=== PATIENT | female | born 1960 | race Caucasian/White ===

== ENCOUNTER 2021-11-08 22:47 | Inpatient (IN) | payer SELFPAY ==
[2021-11-09] MEDS ORDERED: Ondansetron PF 4 MG/2 ML Vial ONE (00:21)
[2021-11-09 00:29] LABS: Hemoglobin 12.4 g/dL (12.0-16.0); Mean Corpuscular HGB CONC 32.5 g/dL (32.0-36.0); Mean Corpuscular Hemoglobin 29.9 pg (27.0-31.0); Mean Corpuscular Volume 92.1 fL (78.0-98.0); Mean Platelet Volume 8.6 fL (7.4-10.4); Platelet Count 145 thou/uL (130-400); RBC Distribution Width 14.9 % (11.5-14.5); Red Blood Cell (RBC) Count 4.15 mill/uL (4.20-5.40); White Blood Cell (WBC) Count 23.3 thou/uL (4.8-10.8)
[2021-11-09 00:47] LABS: Band 54 % (5-11); Lymphocytes 2 % (21-51); MDiff Complete? YES; Metamyelocyte 1 % (0-0); Monocytes 4 % (0-10); Neutrophil 39 % (42-75); Platelet Morphology Comment Appears Adequate; RBC Morphology Normal; Reflex for Review?? YES
[2021-11-09 00:49] LABS: ALT (SGPT) 14 U/L (8-55); AST (SGOT) 24 U/L (5-34); Alkaline Phosphatase 76 U/L (40-110); Anion Gap 14 mmol/L (10-20); BUN (Urea Nitrogen) 43 mg/dL (9.8-20.1); Bilirubin, Total 0.5 mg/dL (0.2-1.2); Calc. Creatinine Clearance 0 mL/min (70-130); Calcium 9.1 mg/dL (7.8-10.44); Carbon Dioxide 22 mmol/L (23-31); Chloride 95 mmol/L (98-107); Globulin 4.9 g/dL (2.4-3.5); Glucose 100 mg/dL (80-115); Lipase 8 U/L (8-78); Potassium 5.8 mmol/L (3.5-5.1); Protein, Total 7.9 g/dL (5.8-8.1); Sodium 125 mmol/L (136-145)
[2021-11-09] MEDS ORDERED: Vancomycin 1 GM/200 ML BAG ONE (00:54)
[2021-11-09] MEDS ORDERED: Cefepime 2 GM VIAL ONE (00:54)
[2021-11-09 03:14] LABS: Bacteria/HPF None Seen HPF (None Seen); Bilirubin Negative (Negative); Blood, Urine 2+ (Negative); Clarity Turbid (Clear); Glucose, Urine (Dipstick) Normal (Negative); Ketone, Urine Negative (Negative); Leukocyte 500 Leu/uL (Negative); Nitrite Negative (Negative); Protein, Urine (Dipstick) 70 mg/dL (Neg-Trace); Specific Gravity, Urine 1.022 (1.002-1.036); Urobilinogen Normal mg/dL (Less than 2); WBC/HPF Greater than 50 HPF (0-3); pH, Urine 5.5 (5.0-9.0)
[2021-11-09 03:18] LABS: Lactic Acid 2.1 mmol/L (0.5-2.2)
[2021-11-09] MEDS ORDERED: Acetaminophen 325 MG TAB PO PRN (08:23)
[2021-11-09] MEDS ORDERED: Ondansetron ODT 4 MG TAB PO PRN (08:23)
[2021-11-09] MEDS ORDERED: Ondansetron PF 4 MG/2 ML Vial IVP PRN (08:23)
[2021-11-09] MEDS ORDERED: HYDROcodone/Acetaminophen 5/325 mg Tablet PO SCH (08:45)
[2021-11-09 10:09] LABS: Anion Gap 12 mmol/L (10-20); BUN (Urea Nitrogen) 36 mg/dL (9.8-20.1); Calc. Creatinine Clearance 0 mL/min (70-130); Calcium 8.3 mg/dL (7.8-10.44); Carbon Dioxide 21 mmol/L (23-31); Chloride 100 mmol/L (98-107); Glucose 87 mg/dL (80-115); Potassium 4.6 mmol/L (3.5-5.1); Sodium 128 mmol/L (136-145)
[2021-11-09] MEDS ORDERED: Enoxaparin Sodium 40 MG/0.4 ML SYRINGE ONE (10:10)
[2021-11-09] MEDS ORDERED: HYDROcodone/Acetaminophen 5/325 mg Tablet ONE (10:10)
[2021-11-09] MEDS: Sodium Chloride 0.9% 1,000 ML IV SCH ×2 (10:18→17:43)
[2021-11-09] MEDS: Cefepime 1 GM in Sodium Chloride 0.9% 100 ML IVPB SCH (13:39)
[2021-11-09] MEDS: HYDROcodone/Acetaminophen 7.5/325 mg Tablet PO PRN (19:23)
[2021-11-09] MEDS: Atorvastatin Calcium 20 MG TAB PO SCH (20:11)
[2021-11-09] MEDS: Sildenafil Citrate 20 MG TAB PO SCH (20:12)
[2021-11-10] MEDS: HYDROcodone/Acetaminophen 7.5/325 mg Tablet PO PRN ×3 (00:26→15:22)
[2021-11-10] MEDS: Cefepime 1 GM in Sodium Chloride 0.9% 100 ML IVPB SCH (00:27)
[2021-11-10] MEDS: Sodium Chloride 0.9% 1,000 ML IV SCH ×2 (00:28→16:03)
[2021-11-10 04:05] LABS: Anion Gap 8 mmol/L (10-20); BUN (Urea Nitrogen) 26 mg/dL (9.8-20.1); Calc. Creatinine Clearance 77 mL/min (70-130); Calcium 7.9 mg/dL (7.8-10.44); Carbon Dioxide 21 mmol/L (23-31); Chloride 106 mmol/L (98-107); Glucose 87 mg/dL (80-115); Potassium 4.4 mmol/L (3.5-5.1); Sodium 131 mmol/L (136-145)
[2021-11-10 04:40] LABS: #Lymphocytes 0.6 thou/uL (1.20-3.40); #Monocytes 0.3 thou/uL (0.11-0.59); #Neutrophils 8.3 thou/uL (1.40-6.50); %Basophils 0.5 % (0.0-1.0); %Eosinophils 0.2 % (0.0-10.0); %Lymphocytes 6.4 % (21.0-51.0); %Neutrophils 89.9 % (42.0-75.0); Hemoglobin 9.4 g/dL (12.0-16.0); Mean Corpuscular HGB CONC 32.5 g/dL (32.0-36.0); Mean Corpuscular Hemoglobin 30.1 pg (27.0-31.0); Mean Corpuscular Volume 92.7 fL (78.0-98.0); Mean Platelet Volume 8.9 fL (7.4-10.4); Platelet Count 99 thou/uL (130-400); Platelet Morphology Comment Appears Decreased; RBC Distribution Width 14.5 % (11.5-14.5); RBC Morphology Normal; Red Blood Cell (RBC) Count 3.11 mill/uL (4.20-5.40); White Blood Cell (WBC) Count 9.2 thou/uL (4.8-10.8)
[2021-11-10] MEDS ORDERED: Gabapentin 300 MG CAP PO PRN (07:36)
[2021-11-10] MEDS ORDERED: Cyclobenzaprine 10 MG TAB PO PRN (07:36)
[2021-11-10] MEDS: predniSONE 5 MG TAB PO SCH (10:13)
[2021-11-10] MEDS: Enoxaparin Sodium 40 MG/0.4 ML SYRINGE SC SCH (10:13)
[2021-11-10] MEDS: Sildenafil Citrate 20 MG TAB PO SCH ×3 (10:13→20:06)
[2021-11-10] MEDS: Hydroxychloroquine Sulfate 200 MG TAB PO SCH (10:13)
[2021-11-10] MEDS: Cefepime 2 GM in Sodium Chloride 0.9% 100 ML IVPB SCH (15:11)
[2021-11-10] MEDS: Atorvastatin Calcium 20 MG TAB PO SCH (20:06)
[2021-11-11] MEDS: Cefepime 2 GM in Sodium Chloride 0.9% 100 ML IVPB SCH (00:54)
[2021-11-11] MEDS: Sodium Chloride 0.9% 1,000 ML IV SCH ×2 (00:55→06:01)
[2021-11-11 06:23] LABS: #Eosinphils 0.1 thou/uL (0.0-0.7); #Lymphocytes 0.7 thou/uL (1.20-3.40); #Monocytes 0.6 thou/uL (0.11-0.59); #Neutrophils 7.7 thou/uL (1.40-6.50); %Basophils 0.5 % (0.0-1.0); %Eosinophils 0.6 % (0.0-10.0); %Monocytes 6.3 % (0.0-10.0); %Neutrophils 84.7 % (42.0-75.0); Hemoglobin 8.9 g/dL (12.0-16.0); Mean Corpuscular HGB CONC 32.9 g/dL (32.0-36.0); Mean Corpuscular Hemoglobin 30.4 pg (27.0-31.0); Mean Corpuscular Volume 92.4 fL (78.0-98.0); Mean Platelet Volume 8.8 fL (7.4-10.4); Platelet Count 89 thou/uL (130-400); RBC Distribution Width 14.3 % (11.5-14.5); Red Blood Cell (RBC) Count 2.92 mill/uL (4.20-5.40); White Blood Cell (WBC) Count 9.1 thou/uL (4.8-10.8)
[2021-11-11 06:42] LABS: Anion Gap 7 mmol/L (10-20); BUN (Urea Nitrogen) 18 mg/dL (9.8-20.1); Calc. Creatinine Clearance 90 mL/min (70-130); Calcium 7.6 mg/dL (7.8-10.44); Carbon Dioxide 20 mmol/L (23-31); Chloride 109 mmol/L (98-107); Glucose 87 mg/dL (80-115); Sodium 132 mmol/L (136-145)
[2021-11-11] MEDS: Enoxaparin Sodium 40 MG/0.4 ML SYRINGE SC SCH (07:58)
[2021-11-11] MEDS: Hydroxychloroquine Sulfate 200 MG TAB PO SCH (07:59)
[2021-11-11] MEDS: Sildenafil Citrate 20 MG TAB PO SCH (07:59)
[2021-11-11] MEDS: HYDROcodone/Acetaminophen 7.5/325 mg Tablet PO PRN (08:01)
[2021-11-11 08:08] VITALS: BP 136/77; TEMP 97.9
[2021-11-11] MEDS: predniSONE 5 MG TAB PO SCH (10:11)
== END 2021-11-11 11:44 | disposition home or self-care (01) | DRG 872 ==
LOC: ERS 22:47 → ERHOLD 11-09 03:44 → IMCU/EMU 11-09 11:05 → T4-B 11-10 14:32
PROVIDERS: ADMIT Internal Medicine; ATTEND Internal Medicine
DX: A41.9 Sepsis, unspecified organism (principal); D84.81 Immunodeficiency due to conditions classified elsewhere; N17.9 Acute kidney failure, unspecified; E87.1 Hypo-osmolality and hyponatremia; N30.00 Acute cystitis without hematuria; M06.9 Rheumatoid arthritis, unspecified; E78.5 Hyperlipidemia, unspecified; E87.6 Hypokalemia; E78.00 Pure hypercholesterolemia, unspecified; E86.0 Dehydration; F17.210 Nicotine dependence, cigarettes, uncomplicated; M19.90 Unspecified osteoarthritis, unspecified site; M81.0 Age-related osteoporosis without current pathological fracture; M54.50 Low back pain, unspecified; G89.29 Other chronic pain; I12.9 Hypertensive chronic kidney disease with stage 1 through stage 4 chronic kidney disease, or unspecified chronic kidney disease; N18.1 Chronic kidney disease, stage 1; D63.1 Anemia in chronic kidney disease; Z88.1 Allergy status to other antibiotic agents; Z88.2 Allergy status to sulfonamides; Z79.899 Other long term (current) drug therapy; Z85.3 Personal history of malignant neoplasm of breast; Z90.49 Acquired absence of other specified parts of digestive tract; Z79.890 Hormone replacement therapy; Z79.52 Long term (current) use of systemic steroids
CPT/HCPCS: 36415; 71045; 74176; 80048; 80053; 81003; 81015; 83605; 83690; 83880; 83930; 83935; 85025; 85060; 87040; 87086; 93005; 96365; 96366; 96368; 96372; 96375; J0692; J1650; J2405; J3370; J3490; J7050; J7512

== ENCOUNTER 2022-07-01 12:41 | Inpatient (IN) | payer SELFPAY ==
[2022-07-01] MEDS ORDERED: Iopamidol-370 76% 500 ML 1 ML ONE (13:03)
[2022-07-01] MEDS ORDERED: Piperacillin/Tazobactam 4.5 GM VIAL ONE (13:23)
[2022-07-01 13:27] LABS: Actual Bicarbonate (HCO3v) 20 mEq/L (22-28); Calcium, Ionized (venous) 1.03 mmol/L (1.16-1.32); Chloride (VBG) 105 mmol/L (98-106); Hemoglobin (Hb) 11.2 g/dL (11.7-16.0); Potassium (VBG) 4.06 mmol/L (3.70-5.30); Sodium 128.6 mmol/L (133-146); pH (venous) 7.36 (7.32-7.43)
[2022-07-01 13:37] LABS: #Lymphocytes 0.3 thou/uL (1.20-3.40); #Monocytes 0.3 thou/uL (0.11-0.59); #Neutrophils 6.2 thou/uL (1.40-6.50); %Eosinophils 0.1 % (0.0-10.0); %Lymphocytes 4.8 % (21.0-51.0); %Monocytes 3.8 % (0.0-10.0); %Neutrophils 91.3 % (42.0-75.0); Hemoglobin 10.3 g/dL (12.0-16.0); Mean Corpuscular HGB CONC 32.4 g/dL (32.0-36.0); Mean Corpuscular Hemoglobin 31.6 pg (27.0-31.0); Mean Corpuscular Volume 97.5 fl (78.0-98.0); Mean Platelet Volume 9.3 fL (7.4-10.4); Platelet Count 78 10x3/uL (130-400); RBC Distribution Width 13.5 % (11.5-14.5); Red Blood Cell (RBC) Count 3.28 mill/uL (4.20-5.40); White Blood Cell (WBC) Count 6.8 10x3/uL (4.8-10.8)
[2022-07-01 13:50] LABS: ALT (SGPT) 19 U/L (8-55); AST (SGOT) 46 U/L (5-34); Albumin 2.4 g/dL (3.4-4.8); Alkaline Phosphatase 94 U/L (40-110); Anion Gap 10 mmol/L (10-20); BUN (Urea Nitrogen) 18 mg/dL (9.8-20.1); Bilirubin, Total 0.8 mg/dL (0.2-1.2); Calc. Creatinine Clearance 0 mL/min (70-130); Calcium 7.4 mg/dL (7.8-10.44); Carbon Dioxide 17 mmol/L (23-31); Chloride 104 mmol/L (98-107); Estimated GFR 87; Glucose 84 mg/dL (80-115); Protein, Total 6.4 g/dL (5.8-8.1); Sodium 127 mmol/L (136-145)
[2022-07-01 14:18] LABS: CKMB 4.1 ng/mL (0-6.6)
[2022-07-01] MEDS ORDERED: Acetaminophen 500 MG TAB ONE (14:25)
[2022-07-01] MEDS ORDERED: Enoxaparin Sodium 60 MG/0.6 ML SYRINGE ONE (15:08)
[2022-07-01] MEDS ORDERED: Aspirin Chewable 81 MG TAB ONE (15:19)
[2022-07-01 15:32] LABS: Bacteria/HPF None Seen HPF (None Seen); Bilirubin Negative (Negative); Blood, Urine 1+ (Negative); Clarity Clear (Clear); Glucose, Urine (Dipstick) Normal (Negative); Ketone, Urine 20 mg/dL (Negative); Leukocyte 75 Leu/uL (Negative); Nitrite Negative (Negative); Protein, Urine (Dipstick) 50 mg/dL (Neg-Trace); RBC/HPF 0-3 HPF (0-3); Squamous Epithelial 0-3 HPF (0-3); Urobilinogen Normal mg/dL (Less than 2); pH, Urine 5.5 (5.0-9.0)
[2022-07-01 15:37] LABS: SARS-CoV-2 NAA Rapid Test DETECTED (NotDetected)
[2022-07-01 16:25] LABS: HBCM Index 0.05 S/CO (0-0.79); HBSAg Index 0.41 S/CO (0-0.99); Hep A IgM AB Non-Reactive (NonReactive); Hep A IgM S/CO 0.18 S/CO (0-0.79); Hep B Surf Ag Non-Reactive S/CO (NonReactive); Hep C IgG Ab Non-Reactive (NonReactive); Hep C Index 0.17 S/CO (0-0.79); Hepatitis B Core IgM Abs Non-Reactive (NonReactive)
[2022-07-01] MEDS ORDERED: Ondansetron ODT 4 MG TAB PO PRN (16:31)
[2022-07-01] MEDS ORDERED: Ondansetron PF 4 MG/2 ML Vial IVP PRN (16:31)
[2022-07-01] MEDS ORDERED: Senokot S 8.6-50 MG TAB PO PRN (16:31)
[2022-07-01] MEDS ORDERED: Diclofenac 1% 100 GM GEL TP PRN (16:39)
[2022-07-01] MEDS ORDERED: Lactated Ringer's 1,000 ML IV SCH (16:45)
[2022-07-01 17:41] LABS: Troponin I 2.222 ng/mL (< 0.028)
[2022-07-01 17:50] VITALS: BMI 21.6
[2022-07-01] MEDS ORDERED: Furosemide 40 MG/4 ML VIAL SLOW IVP SCH (18:00)
[2022-07-01] MEDS: Vancomycin HCl 125 MG/5 ML (BATCHED) UDCUP PO SCH (20:22)
[2022-07-01] MEDS: Famotidine 20 MG TAB PO SCH (20:22)
[2022-07-01] MEDS: Enoxaparin Sodium 60 MG/0.6 ML SYRINGE SC SCH (20:22)
[2022-07-01] MEDS: Atorvastatin Calcium 20 MG TAB PO SCH (20:22)
[2022-07-01] MEDS: Cefepime 2 GM in Sodium Chloride 0.9% 100 ML IVPB SCH (20:23)
[2022-07-01] MEDS: HYDROcodone/Acetaminophen 7.5/325 mg Tablet PO PRN (20:37)
[2022-07-01] MEDS ORDERED: REMDESIVIR 200 MG in Sodium Chloride 0.9% 250 ML 210 ML IV SCH (21:00)
[2022-07-01 21:04] LABS: Critical Call Chem Troponin I RESULT DECREASING; Troponin I 1.387 ng/mL (< 0.028)
[2022-07-01] MEDS: Acetaminophen 325 MG TAB PO PRN (22:16)
[2022-07-02] MEDS: Acetaminophen 325 MG TAB PO PRN ×3 (02:50→18:54)
[2022-07-02 04:14] LABS: #Basophils 0.1 thou/uL (0.0-0.2); #Lymphocytes 0.7 thou/uL (1.20-3.40); #Monocytes 0.5 thou/uL (0.11-0.59); #Neutrophils 3.5 thou/uL (1.40-6.50); %Eosinophils 0.4 % (0.0-10.0); %Lymphocytes 15.2 % (21.0-51.0); %Monocytes 9.9 % (0.0-10.0); %Neutrophils 72.5 % (42.0-75.0); Hemoglobin 10.3 g/dL (12.0-16.0); Mean Corpuscular HGB CONC 31.5 g/dL (32.0-36.0); Mean Corpuscular Hemoglobin 31.6 pg (27.0-31.0); Mean Platelet Volume 10.2 fL (7.4-10.4); Platelet Count 79 10x3/uL (130-400); RBC Distribution Width 13.8 % (11.5-14.5); Red Blood Cell (RBC) Count 3.26 mill/uL (4.20-5.40); White Blood Cell (WBC) Count 4.8 10x3/uL (4.8-10.8)
[2022-07-02 04:25] LABS: ALT (SGPT) 20 U/L (8-55); AST (SGOT) 37 U/L (5-34); Albumin 2.1 g/dL (3.4-4.8); Alkaline Phosphatase 103 U/L (40-110); Anion Gap 10 mmol/L (10-20); BUN (Urea Nitrogen) 16 mg/dL (9.8-20.1); Bilirubin, Total 0.3 mg/dL (0.2-1.2); Calc. Creatinine Clearance 75 mL/min (70-130); Calcium 7.1 mg/dL (7.8-10.44); Carbon Dioxide 16 mmol/L (23-31); Chloride 108 mmol/L (98-107); Estimated GFR 90; Globulin 3.7 g/dL (2.4-3.5); Glucose 73 mg/dL (80-115); Potassium 4.2 mmol/L (3.5-5.1); Protein, Total 5.8 g/dL (5.8-8.1); Sodium 130 mmol/L (136-145)
[2022-07-02] MEDS: HYDROcodone/Acetaminophen 7.5/325 mg Tablet PO PRN ×3 (05:47→17:59)
[2022-07-02] MEDS: Cefepime 2 GM in Sodium Chloride 0.9% 100 ML IVPB SCH ×2 (09:43→20:21)
[2022-07-02] MEDS: Enoxaparin Sodium 60 MG/0.6 ML SYRINGE SC SCH ×2 (09:44→20:21)
[2022-07-02] MEDS: Vancomycin HCl 125 MG/5 ML (BATCHED) UDCUP PO SCH ×4 (09:44→20:21)
[2022-07-02] MEDS: Famotidine 20 MG TAB PO SCH ×2 (12:32→20:21)
[2022-07-02 16:34] LABS: Campy jejuni + coli by PCR Negative (Negative); STEC Shiga Toxin 1+2 Negative (Negative); Salmonella spp. by PCR Negative (Negative); Shigella spp + EIEC by PCR Negative (Negative)
[2022-07-02] MEDS: REMDESIVIR 100 MG in Sodium Chloride 0.9% 250 ML 230 ML IV SCH (20:21)
[2022-07-02] MEDS: Atorvastatin Calcium 20 MG TAB PO SCH (20:21)
[2022-07-03] MEDS: HYDROcodone/Acetaminophen 7.5/325 mg Tablet PO PRN ×3 (00:21→20:54)
[2022-07-03 04:17] LABS: #Eosinphils 0.1 thou/uL (0.0-0.7); #Monocytes 0.4 thou/uL (0.11-0.59); #Neutrophils 4.2 thou/uL (1.40-6.50); %Basophils 0.4 % (0.0-1.0); %Eosinophils 0.9 % (0.0-10.0); %Monocytes 7.6 % (0.0-10.0); %Neutrophils 74.1 % (42.0-75.0); Hemoglobin 9.8 g/dL (12.0-16.0); Mean Corpuscular HGB CONC 32.1 g/dL (32.0-36.0); Mean Corpuscular Hemoglobin 30.9 pg (27.0-31.0); Mean Corpuscular Volume 96.2 fl (78.0-98.0); Mean Platelet Volume 10.5 fL (7.4-10.4); Platelet Count 102 10x3/uL (130-400); RBC Distribution Width 13.9 % (11.5-14.5); Red Blood Cell (RBC) Count 3.17 mill/uL (4.20-5.40); White Blood Cell (WBC) Count 5.7 10x3/uL (4.8-10.8)
[2022-07-03 04:30] LABS: ALT (SGPT) 20 U/L (8-55); AST (SGOT) 29 U/L (5-34); Albumin 2.3 g/dL (3.4-4.8); Alkaline Phosphatase 94 U/L (40-110); Anion Gap 8 mmol/L (10-20); BUN (Urea Nitrogen) 20 mg/dL (9.8-20.1); Bilirubin, Total 0.4 mg/dL (0.2-1.2); Calc. Creatinine Clearance 89 mL/min (70-130); Calcium 7.6 mg/dL (7.8-10.44); Carbon Dioxide 18 mmol/L (23-31); Chloride 108 mmol/L (98-107); Cholesterol 42 mg/dl (< 200 Desired); Estimated GFR 100; Globulin 3.8 g/dL (2.4-3.5); Glucose 85 mg/dL (80-115); HDL Cholesterol Less than 8 mg/dL (>60 Neg Risk); Potassium 4.1 mmol/L (3.5-5.1); Protein, Total 6.1 g/dL (5.8-8.1); Sodium 130 mmol/L (136-145); Triglycerides 125 mg/dL (Less than 150)
[2022-07-03 04:37] LABS: Cardiac Risk TEST NOT PERFORMED (Less than 4.5)
[2022-07-03] MEDS ORDERED: Enoxaparin Sodium 40 MG/0.4 ML SYRINGE SC SCH (09:00)
[2022-07-03] MEDS: Cefepime 2 GM in Sodium Chloride 0.9% 100 ML IVPB SCH ×2 (09:05→20:56)
[2022-07-03] MEDS: Famotidine 20 MG TAB PO SCH ×2 (09:06→20:54)
[2022-07-03] MEDS: Vancomycin HCl 125 MG/5 ML (BATCHED) UDCUP PO SCH ×4 (09:06→20:56)
[2022-07-03] MEDS: Saccharomyces boulardii 250 MG CAP PO SCH (09:07)
[2022-07-03] MEDS ORDERED: Cyclobenzaprine 10 MG TAB PO PRN (09:46)
[2022-07-03] MEDS ORDERED: Gabapentin 300 MG CAP PO PRN (09:46)
[2022-07-03] MEDS: Acetaminophen 325 MG TAB PO PRN (15:05)
[2022-07-03] MEDS: Sildenafil Citrate 20 MG TAB PO SCH ×2 (15:05→22:06)
[2022-07-03] MEDS: Atorvastatin Calcium 20 MG TAB PO SCH (20:54)
[2022-07-03] MEDS: REMDESIVIR 100 MG in Sodium Chloride 0.9% 250 ML 230 ML IV SCH (21:09)
[2022-07-04 05:18] LABS: Hemoglobin 9.9 g/dL (12.0-16.0); Platelet Count 99 10x3/uL (130-400)
[2022-07-04 05:30] LABS: Anion Gap 10 mmol/L (10-20); BUN (Urea Nitrogen) 19 mg/dL (9.8-20.1); Calc. Creatinine Clearance 88 mL/min (70-130); Calcium 7.6 mg/dL (7.8-10.44); Carbon Dioxide 18 mmol/L (23-31); Chloride 109 mmol/L (98-107); Estimated GFR 100; Glucose 81 mg/dL (80-115); Sodium 133 mmol/L (136-145)
[2022-07-04] MEDS: Famotidine 20 MG TAB PO SCH ×2 (09:40→21:48)
[2022-07-04] MEDS: Enoxaparin Sodium 40 MG/0.4 ML SYRINGE SC SCH (09:40)
[2022-07-04] MEDS: Cefepime 2 GM in Sodium Chloride 0.9% 100 ML IVPB SCH ×2 (09:41→21:48)
[2022-07-04] MEDS: Saccharomyces boulardii 250 MG CAP PO SCH (09:41)
[2022-07-04] MEDS: Sildenafil Citrate 20 MG TAB PO SCH ×3 (09:42→22:34)
[2022-07-04] MEDS: Vancomycin HCl 125 MG/5 ML (BATCHED) UDCUP PO SCH ×5 (09:52→22:40)
[2022-07-04] MEDS: HYDROcodone/Acetaminophen 7.5/325 mg Tablet PO PRN (17:12)
[2022-07-04] MEDS: Atorvastatin Calcium 20 MG TAB PO SCH (21:48)
[2022-07-05 04:51] LABS: #Eosinphils 0.1 thou/uL (0.0-0.7); #Lymphocytes 1.3 thou/uL (1.20-3.40); #Monocytes 0.5 thou/uL (0.11-0.59); #Neutrophils 4.7 thou/uL (1.40-6.50); %Basophils 0.1 % (0.0-1.0); %Eosinophils 2.1 % (0.0-10.0); %Lymphocytes 19.3 % (21.0-51.0); %Monocytes 7.8 % (0.0-10.0); %Neutrophils 70.7 % (42.0-75.0); Hemoglobin 9.5 g/dL (12.0-16.0); Mean Corpuscular HGB CONC 31.2 g/dL (32.0-36.0); Mean Corpuscular Hemoglobin 30.3 pg (27.0-31.0); Mean Corpuscular Volume 97.1 fl (78.0-98.0); Mean Platelet Volume 9.9 fL (7.4-10.4); Platelet Count 162 10x3/uL (130-400); Red Blood Cell (RBC) Count 3.12 mill/uL (4.20-5.40); White Blood Cell (WBC) Count 6.6 10x3/uL (4.8-10.8)
[2022-07-05 05:12] LABS: Anion Gap 10 mmol/L (10-20); BUN (Urea Nitrogen) 16 mg/dL (9.8-20.1); Calc. Creatinine Clearance 89 mL/min (70-130); Carbon Dioxide 19 mmol/L (23-31); Chloride 107 mmol/L (98-107); Estimated GFR 100; Glucose 102 mg/dL (80-115); Potassium 3.9 mmol/L (3.5-5.1); Sodium 132 mmol/L (136-145)
[2022-07-05] MEDS: Famotidine 20 MG TAB PO SCH ×2 (09:05→20:43)
[2022-07-05] MEDS: Saccharomyces boulardii 250 MG CAP PO SCH (09:05)
[2022-07-05] MEDS: Enoxaparin Sodium 40 MG/0.4 ML SYRINGE SC SCH (09:05)
[2022-07-05] MEDS: Sildenafil Citrate 20 MG TAB PO SCH ×3 (09:06→23:16)
[2022-07-05] MEDS: Cefepime 2 GM in Sodium Chloride 0.9% 100 ML IVPB SCH ×2 (09:06→20:43)
[2022-07-05] MEDS: Vancomycin HCl 125 MG/5 ML (BATCHED) UDCUP PO SCH ×4 (09:11→22:32)
[2022-07-05] MEDS: Atorvastatin Calcium 20 MG TAB PO SCH (20:43)
[2022-07-05] MEDS: HYDROcodone/Acetaminophen 7.5/325 mg Tablet PO PRN (23:16)
[2022-07-06] MEDS: Cefepime 2 GM in Sodium Chloride 0.9% 100 ML IVPB SCH (09:12)
[2022-07-06] MEDS: Enoxaparin Sodium 40 MG/0.4 ML SYRINGE SC SCH (09:13)
[2022-07-06] MEDS: Famotidine 20 MG TAB PO SCH (09:13)
[2022-07-06] MEDS: Saccharomyces boulardii 250 MG CAP PO SCH (09:14)
[2022-07-06] MEDS: Sildenafil Citrate 20 MG TAB PO SCH ×2 (09:14→14:58)
[2022-07-06] MEDS: Vancomycin HCl 125 MG/5 ML (BATCHED) UDCUP PO SCH ×2 (09:15→14:58)
[2022-07-06 11:58] VITALS: BP 159/74; TEMP 98.6
== END 2022-07-06 15:35 | disposition home or self-care (01) | DRG 871 ==
LOC: ERS 12:41 → IMCU/EMU 17:32 → 2NO 07-03 17:47
PROVIDERS: ADMIT Hospitalist; ATTEND Hospitalist
PROC: 3E03329 Introduction of Other Anti-infective into Peripheral Vein, Percutaneous Approach (ICD-10-PCS; principal; 2022-07-01)
PROC: XW033E5 Introduction of Remdesivir Anti-infective into Peripheral Vein, Percutaneous Approach, New Technology Group 5 (ICD-10-PCS; 2022-07-01)
PROC: 8E0ZXY6 Isolation (ICD-10-PCS; 2022-07-01)
DX: A41.9 Sepsis, unspecified organism (principal); I21.A1 Myocardial infarction type 2; U07.1 COVID-19; R65.20 Severe sepsis without septic shock; A04.72 Enterocolitis due to Clostridium difficile, not specified as recurrent; E87.1 Hypo-osmolality and hyponatremia; D84.9 Immunodeficiency, unspecified; N12 Tubulo-interstitial nephritis, not specified as acute or chronic; M06.9 Rheumatoid arthritis, unspecified; E78.00 Pure hypercholesterolemia, unspecified; R79.89 Other specified abnormal findings of blood chemistry; Z79.899 Other long term (current) drug therapy; Z88.1 Allergy status to other antibiotic agents; Z88.2 Allergy status to sulfonamides; Z98.890 Other specified postprocedural states; Z82.49 Family history of ischemic heart disease and other diseases of the circulatory system
CPT/HCPCS: 36415; 36416; 71045; 74177; 80048; 80053; 80061; 80074; 81003; 81015; 82553; 82805; 83605; 83880; 83935; 84484; 85014; 85018; 85025; 85049; 87040; 87086; 87505; 93005; 93306; 96365; 96372; J0248; J0692; J1650; J1940; J1956; J2543; J3490; J7050; Q9967